=== PATIENT | female | born 1995 | race Caucasian/White ===

== ENCOUNTER 2016-08-14 08:45 | Inpatient (IN) | payer OTHER ==
[2016-08-14] MEDS ORDERED: LACTATED RINGERS 1,000 ML ONE (09:17)
[2016-08-14] MEDS ORDERED: SUBLIMAZE ONE (09:17)
[2016-08-14] MEDS ORDERED: POLYCILLIN/NS 2 GM/100 ML 2 GM/100 ML BAG IV ONE ×2 (09:17→09:40)
[2016-08-14] MEDS: SUBLIMAZE IV PRN ×2 (09:30→11:19)
[2016-08-14] MEDS ORDERED: ePHEDrine SULFATE IV PRN (09:40)
[2016-08-14] MEDS ORDERED: BRETHINE IVP PRN (09:40)
[2016-08-14] MEDS ORDERED: MINERAL OIL PO PRN (09:40)
[2016-08-14] MEDS ORDERED: XYLOCAINE 2% INFILTRATI ONE (09:40)
[2016-08-14] MEDS ORDERED: BRETHINE SUB-Q PRN (09:40)
[2016-08-14] MEDS ORDERED: LACTATED RINGERS 1,000 ML IV ONE (09:45)
[2016-08-14] MEDS ORDERED: PITOCin/NS 20 UNIT/1000ML DRIP 20 UNITS/1,000 ML BAG IV SCH ×2 (10:00→18:25)
[2016-08-14] MEDS ORDERED: ePHEDrine SULFATE ONE (10:00)
[2016-08-14] MEDS ORDERED: LACTATED RINGERS 1,000 ML IV SCH ×2 (10:00→16:00)
[2016-08-14 10:54] LABS: Basophils % (Auto) 0.2 % (0.0-1.8); Eosinophils % (Auto) 0.2 % (0.0-4.3); Hematocrit 37.2 % (30.3-42.9); Hemoglobin 12.3 gm/dl (10.1-14.3); Mean Corpuscular HGB Conc 33 % (30-34); Mean Corpuscular Hemoglobin 28 pg (28-32); Mean Corpuscular Volume 85 fl (79-97); Platelet Count 210 K/mm3 (140-440); Red Blood Count 4.39 M/mm3 (3.65-5.03); Red Cell Distribution Width 14.4 % (13.2-15.2); White Blood Count 10.8 K/mm3 (4.5-11.0)
--- NOTE | 2016-08-14 10:55 | History and Physical Report ---
History of Present Illness Date of examination: 08/14/16 Date of admission: 08/14/16 08:51 Chief complaint: Active labor History of present illness: Patient is a 21 year old who presents in active labor with no care. She is post vaginal delivery 18 months ago. 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: chlamydia Social history: - Obstetrical History Expected Date of Delivery: 08/16/16 Actual Gestation: 39 Week(s) 5 Day(s) : 2 Para: 1 Medications and Allergies Allergies Allergy/AdvReac Type Severity Reaction Status Date / Time No Known Allergies Allergy Verified 10/16/14 17:20 Active Meds: Active Medications Ephedrine Sulfate (Ephedrine Sulfate) 10 mg IV Q2M PRN PRN Reason: Hypotension Stop: 08/14/16 18:00 Fentanyl (Sublimaze) 100 mcg IV Q2H PRN PRN Reason: Labor Pain Last Admin: 08/14/16 09:30 Dose: 100 mcg Ampicillin Sodium (Polycillin/Ns 2 Gm/100 Ml) 2 gm in 100 mls @ 100 mls/hr IV ONCE ONE PRN Reason: Protocol Stop: 08/14/16 10:39 Last Admin: 08/14/16 09:35 Dose: 100 mls/hr Ampicillin Sodium (Polycillin/Ns 1 Gm/50 Ml) 1 gm in 50 mls @ 100 mls/hr IV Q4H SELENE PRN Reason: Protocol Lactated Ringer's (Lactated Ringers) 1,000 mls @ 125 mls/hr IV DIRECT SELENE Oxytocin/Sodium Chloride (Pitocin/Ns 20 Unit/1000ml Drip) 20 units in 1,000 mls @ 125 mls/hr IV DIRECT SELENE Lactated Ringer's (Lactated Ringers) 1,000 mls @ 999 mls/hr IV BOLUS ONE Stop: 08/14/16 10:45 Last Admin: 08/14/16 09:55 Dose: 999 mls/hr Influenza Virus Vaccine Quadrival (Fluarix Quad 8520-6577(36 Mos+)) 60 mcg IM .ONCE ONE Stop: 08/15/16 12:01 Mineral Oil (Mineral Oil) 30 ml PO QHS PRN PRN Reason: Constipation Review of Systems All systems: negative Genitourinary: contractions - Vital Signs Vital signs: Vital Signs Pulse Pulse Ox 57 L 97 08/14/16 08:48 08/14/16 08:48 Temp Pulse Resp BP Pulse Ox 98.2 F 106 H 20 115/66 99 08/14/16 09:58 08/14/16 10:33 08/14/16 09:58 08/14/16 10:31 08/14/16 10:33 - Physical Exam Breasts: Cardiovascular: Regular rate, Normal S1, Normal S2 Lungs: Positive: Clear to auscultation Abdomen: Positive: normal appearance, soft, normal bowel sounds. Negative: distention, tenderness Vulva: both: normal Vagina: Positive: normal moisture. Negative: discharge Cervix: Negative: lesion, discharge Uterus: Positive: normal size, normal contour Adnexa: both: normal Anus/Rectum: Positive: normal perianal skin, heme negative. Negative: rectal mass, hemorrhoids Extremities: Deep Tendon Reflex Grade: Normal +2 - Obstetrical Cervical Dilatation: 7 Cervical Effacement Percentage: 90 station: -2 Uterine Contraction Pattern: Regular Uterine Tone Measurement Phase: Resting Uterine Contraction Intensity: Moderate Results All other labs normal. Assessment and Plan IUP at 39.5 weeks in active labor with no care. Will draw panel. NO cultures available. Patient wants epidural. Anticipate .
--- NOTE | 2016-08-14 11:10 | Event Note ---
Date: 08/14/16 In to see patient. Cvx /-2. AROM for dark, thick meconium. Patient reconfirmed that EDC is 08/16/16. She denies tobacco or drug use.
[2016-08-14 11:19] LABS: HIV-1 Antigen p24 Non React (Non React); HIVR-1/2 Ab Non React (Non React)
[2016-08-14] MEDS: ePHEDrine SULFATE IV PRN ×2 (11:55→12:08)
[2016-08-14] MEDS ORDERED: NARCAN 2 MG/2 ML IV PRN (12:01)
--- NOTE | 2016-08-14 12:01 | Anesthesia Consultation ---
Anesthesia Consult and Med Hx Date of service: 08/14/16 - Airway Anesthetic Teeth Evaluation: Good ROM Head & Neck: Adequate Mental/Hyoid Distance: Adequate Intubation Access Assessment: Probably Good - Pulmonary Exam CTA: Yes - Cardiac Exam Cardiac Exam: RRR - Pre-Operative Health Status ASA Pre-Surgery Classification: ASA2, Emergency Proposed Anesthetic Plan: Epidural, Spinal - Pulmonary Hx Asthma: Yes (last used inhaler 03/07) COPD: No Hx Pneumonia: No - Cardiovascular System Hx Hypertension: No - Central Nervous System Hx Seizures: No Hx Psychiatric Problems: No - Endocrine Hx Renal Disease: No Hx End Stage Renal Disease: No Hx Hypothyroidism: No Hx Hyperthyroidism: No - Hematic Hx Anemia: No Hx Sickle Cell Disease: No - Other Systems Hx Alcohol Use: No
[2016-08-14] MEDS: fentaNYL-BUPIV 2 MCG/ML-0.125% 200 MCG/100 ML BAG EPIDURAL SCH ×2 (12:39→15:40)
[2016-08-14] MEDS ORDERED: POLYCILLIN/NS 1 GM/50 ML 1 GM/50 ML BAG IV SCH (13:42)
[2016-08-14] MEDS ORDERED: BICITRA ONE (15:12)
[2016-08-14] MEDS ORDERED: REGLAN ONE (15:12)
[2016-08-14] MEDS ORDERED: PEPCID IV ONE ×2 (15:13→15:14)
[2016-08-14] MEDS ORDERED: ANCEF/STERILE WATER 2 GM/20 ML 2 GM/20 ML SYRINGE IV ONE (15:13)
[2016-08-14] MEDS ORDERED: REGLAN IV ONE (15:14)
[2016-08-14] MEDS ORDERED: BICITRA PO ONE (15:14)
--- NOTE | 2016-08-14 15:23 | Anesthesia Day of Surgery ---
Anesthesia Day of Surgery - Day of Surgery Patient Examined: Yes Patient H&P Reviewed: Yes Patient is NPO: No (FSP) Pulmonary Clearance: No
[2016-08-14] MEDS ORDERED: DILAUDID IV PRN (15:24)
[2016-08-14] MEDS ORDERED: ZOFRAN IV PRN ×2 (15:24→18:25)
[2016-08-14] MEDS ORDERED: NARCAN 0.4 MG/1 ML IV PRN ×2 (15:24→18:25)
[2016-08-14] MEDS ORDERED: BENADRYL IV PRN (15:24)
[2016-08-14] MEDS ORDERED: ANCEF/STERILE WATER 2 GM/20 ML IV NR (15:30)
--- NOTE | 2016-08-14 15:35 | Event Note ---
Date: 08/14/16 Patient still thomas regularly, but with no cervical change for 5 hours. head confirmed occiput posterior with ultrasound. heart tones now in 170s-180s from 130s. Will plan for for arrest of labor and non reassuring heart tones.
[2016-08-14] MEDS ORDERED: SODIUM CHLORIDE FLUSH SYRINGE 10 ML IV NR ×2 (16:00→18:25)
[2016-08-14] MEDS ORDERED: WATER FOR IRRIG STERILE IR ONE (16:00)
[2016-08-14] MEDS ORDERED: NACL 0.9% IR ONE (16:00)
[2016-08-14] MEDS ORDERED: XYLOCAINE MPF 2% ONE (16:01)
[2016-08-14] MEDS ORDERED: MORPHINE ONE (16:01)
[2016-08-14] MEDS ORDERED: VERSED ONE (16:14)
[2016-08-14] MEDS ORDERED: DEMEROL IV PRN (16:59)
--- NOTE | 2016-08-14 17:04 | Post Anesthesia Evaluation ---
- Post Anesthesia Evaluation Patient Participated: Yes Airway Patent: Yes Stable Respiratory Function: Yes Temp > 96.8F: Yes Pain Manageable: Yes Adequeate Hydration: Yes Anesthesia Complications: No Block Receding Appropriately: Yes (Epidural removed intact at end of surgery)
[2016-08-14] MEDS ORDERED: TUCKS PAD TP PRN (18:25)
[2016-08-14] MEDS ORDERED: MYLICON PO PRN (18:25)
[2016-08-14] MEDS ORDERED: MORPHINE IV PRN (18:25)
[2016-08-14] MEDS ORDERED: LANSINOH TP PRN (18:25)
[2016-08-14] MEDS ORDERED: MILK OF MAGNESIA PO PRN (18:25)
[2016-08-14] MEDS ORDERED: TORADOL IV PRN (18:31)
--- NOTE | 2016-08-14 18:43 | Operative Report ---
PREOPERATIVE DIAGNOSES: 1. Intrauterine , approximately 40 weeks. 2. Arrest of labor. 3. tachycardia. 4. Meconium staining. 5. Insufficient care. POSTOPERATIVE DIAGNOSES: 1. Intrauterine , approximately 40 weeks. 2. Arrest of labor. 3. tachycardia. 4. Meconium staining. 5. Insufficient care. 6. Likely oligohydramnios. SURGEON: Nell Kiser MD ANESTHESIA: Spinal, Dr. Costa. ESTIMATED BLOOD LOSS: 600. URINE OUTPUT: 100, slightly blood tinged at the end of the procedure. COMPLICATIONS: None. INTRAVENOUS FLUIDS: 1500. FINDINGS: A 7-pound 2-ounce viable male, 3235 grams, 19.5 inches long, in occiput posterior position. DESCRIPTION OF PROCEDURE: The patient was taken to the OR with IV running in place. She was properly identified as herself. She was given a dose for epidural. She was then prepped and draped in normal sterile fashion. An Allis test confirmed adequate anesthesia. A Pfannenstiel incision was then made with a scalpel and carried to underlying fascia using scalpel and the Bovie. The fascia was incised in the midline. The incision was then extended bilaterally using the curved Adler scissors. The fascia was then dissected from the underlying rectus muscles with sharp and blunt dissection. The muscles were in the midline and the incision was extended superiorly and inferiorly using the Adler scissors. The peritoneal cavity was entered into. The bladder appeared to be bulging into the field. A bladder blade was then placed into the incision to protect the bladder. A bladder flap was created and a hysterotomy incision was then made. The lower uterine segment was noted to be very thin and somewhat floppy. Upon entry into the uterus, the ear was noted. There was minimal green fluid. The infant was then delivered through the incision. His mouth and nose were suctioned. The cord was clamped and cut. He was then handed to the awaiting NICU personnel. The placenta was delivered manually. Uterus was exteriorized and cleared of all clots and debris. The uterine incision was then repaired in a running locked fashion with 0 chromic. Upon what was thought to be the end of the repair, it was noted that there was an area of the lower uterine segment that had slipped out of the initial suture line. was identified, tented upward and repaired. Once this was completed, there was excellent hemostasis. The abdomen and pelvis were copiously irrigated with warm normal saline. The uterus was replaced into the abdominal cavity. The muscles were reapproximated in the midline with 0 Vicryl. The fascia was closed in a running fashion using 0 Vicryl. The subcutaneous tissue was then copiously irrigated and the skin was closed in a running fashion with 4-0 Monocryl. The sponge, lap, needle, and instrument counts were correct x 2. The patient tolerated the procedure well and was taken to recovery in stable condition. JOB# [id number] JENNIFER/JAY
[2016-08-14] MEDS ORDERED: D5LR 1,000 ML IV SCH (20:00)
[2016-08-15] MEDS: PERCOCET 5/325 PO PRN ×3 (00:13→14:56)
[2016-08-15] MEDS ORDERED: BOOSTRIX IM ONE (06:00)
[2016-08-15] MEDS: MOTRIN PO PRN ×2 (06:09→14:57)
[2016-08-15 06:13] LABS: Hematocrit 29.6 % (30.3-42.9); Hemoglobin 9.7 gm/dl (10.1-14.3)
[2016-08-15] MEDS: PRENATAL VITAMIN PO SCH (10:00)
[2016-08-15] MEDS: FEOSOL PO SCH (10:00)
[2016-08-15] MEDS ORDERED: FLUARIX QUAD 2016-2017(36 MOS+) IM ONE (12:00)
--- NOTE | 2016-08-15 16:34 | Progress Note ---
Assessment and Plan PPD 1 s/p primary c/s. patient waiting to pass flatus. Will likely discharge on tomorrow. Subjective - Subjective Date of service: 08/15/16 Interval history: Patient is a 21 year old who presents in active labor with no care. She is post vaginal delivery 18 months ago. Patient reports: appetite normal, voiding normally, pain well controlled [place]: doing well Objective - Vital Signs Latest vital signs: Vital Signs Temp Pulse Pulse Pulse Resp BP BP 08/15/16 11:31 97.8 F 76 16 90/50 08/15/16 09:07 90/58 08/15/16 07:35 98.0 F 88 20 80/58 08/15/16 06:09 18 08/15/16 04:30 98.4 F 89 20 116/63 08/15/16 01:13 18 08/15/16 00:13 18 08/15/16 00:00 98.6 F 96 H 20 92/54 08/14/16 20:10 98.0 F 99 H 20 123/73 08/14/16 18:10 97.5 F L 102 H 18 119/72 08/14/16 17:52 99.8 F H 112 H 18 104/65 08/14/16 17:40 111 H 18 99/62 08/14/16 17:25 108 H 18 101/59 08/14/16 17:10 99.0 F 108 H 18 103/62 08/14/16 17:05 113 H 18 101/59 08/14/16 17:00 117 H 18 100/56 08/14/16 16:55 125 H 18 85/51 Pulse Ox 08/15/16 11:31 08/15/16 09:07 08/15/16 07:35 08/15/16 06:09 08/15/16 04:30 08/15/16 01:13 08/15/16 00:13 08/15/16 00:00 08/14/16 20:10 08/14/16 18:10 08/14/16 17:52 100 08/14/16 17:40 99 08/14/16 17:25 99 08/14/16 17:10 99 08/14/16 17:05 99 08/14/16 17:00 99 08/14/16 16:55 99 Intake and Output 08/15/16 08/15/16 08/15/16 06:59 14:59 22:59 Intake Total 870 120 Output Total 1500 750 Balance -630 -630 Intake: IV 750 D5lr 1,000 ml @ 125 mls/ 750 hr IV DIRECT SELENE Rx#: [id number] Oral 120 120 Output: Urine 1500 750 Indwelling Catheter 1500 Void 750 Other: Total, Intake Amount 120 120 Total, Output Amount 600 750 - Exam Breasts: Present: deferred Cardiovascular: Present: Regular rate, Normal S1, Normal S2 Lungs: Present: Clear to auscultation, Normal air movement Abdomen: Present: normal appearance, soft, normal bowel sounds Uterus: Present: normal, firm Extremities: Present: normal - Labs Labs: Abnormal lab results 08/15/16 Range/Units 05:33 Hgb 9.7 L (10.1-14.3) gm/dl Hct 29.6 L D (30.3-42.9) %
[2016-08-15] MEDS ORDERED: M-M-R II VACCINE SUB-Q ONE (16:47)
[2016-08-16] MEDS: MOTRIN PO PRN ×3 (02:19→16:35)
[2016-08-16] MEDS: PERCOCET 5/325 PO PRN ×3 (02:21→23:52)
[2016-08-16] MEDS: FEOSOL PO SCH (11:00)
[2016-08-16] MEDS: PRENATAL VITAMIN PO SCH (11:00)
--- NOTE | 2016-08-16 14:17 | Discharge Summary ---
Providers - Providers Date of Admission: 08/14/16 08:51 Date of discharge: 08/16/16 Attending physician: ANDRIA PEREZ Primary care physician: [employer] [facility] Hospitalization Reason for admission: active labor, other (no care) Delivery: Procedure: primary low transverse Procedure details: see op report Episiotomy: none Laceration: none Incision: normal, intact complications: none Discharge diagnosis: IUP at term delivered [place] baby: male Hospital course: Unremarkable Condition at discharge: Good Disposition: DISCHARGED TO HOME OR SELFCARE Plan - Discharge Medications Prescriptions: Docusate Sodium [Colace] 100 mg PO BID PRN #60 capsule PRN Reason: Constipation Ferrous Sulfate [Feosol 325 MG tab] 325 mg PO BID #60 tablet Ibuprofen [Motrin] 800 mg PO Q8HR PRN #40 tablet PRN Reason: Pain Oxycodone HCl/Acetaminophen [Percocet 7.5/325 mg] 1 each PO Q6HR PRN #50 tablet PRN Reason: Pain - Provider Discharge Summary Activity: routine, no sex for 6 weeks, no heavy lifting 4 weeks, no strenuous exercise Diet: routine Instructions: routine Additional instructions: [] Smoking cessation referral if applicable(refer to patient education folder for contact #) [] Refer to [facility] Booklet Call your doctor immediately for: * Fever > 100.5 * Heavy vaginal bleeding ( >1 pad per hour) * Severe persistent headache * Shortness of breath * Reddened, hot, painful area to leg or breast * Drainage or odor from incision. * Keep incision clean and dry at all times and follow doctor's instructions regarding bathing/showering - Follow up plan Follow up: ANDRIA PEREZ MD [Staff Physician] - 14 Days
[2016-08-17] MEDS: MOTRIN PO PRN ×2 (05:25→12:59)
[2016-08-17] MEDS: PRENATAL VITAMIN PO SCH (10:01)
[2016-08-17] MEDS: FEOSOL PO SCH (10:02)
[2016-08-17] MEDS: PERCOCET 5/325 PO PRN (18:45)
[2016-08-17 18:52] VITALS: BP 92/48
== END 2016-08-17 21:40 | disposition home or self-care (01) | DRG 765 ==
LOC: TRG 08:45 → LD 08:51 → OB 18:17
PROVIDERS: ADMIT Obstetrics & Gynecology; ATTEND Obstetrics & Gynecology
PROC: 10D00Z1 Extraction of Products of Conception, Low, Open Approach (ICD-10-PCS; principal; 2016-08-14)
DX: O76 Abnormality in fetal heart rate and rhythm complicating labor and delivery (principal); O98.82 Other maternal infectious and parasitic diseases complicating childbirth; O41.03X0 Oligohydramnios, third trimester, not applicable or unspecified; O09.33 Supervision of pregnancy with insufficient antenatal care, third trimester; O77.0 Labor and delivery complicated by meconium in amniotic fluid; Z3A.39 39 weeks gestation of pregnancy; Z37.0 Single live birth; O99.513 Diseases of the respiratory system complicating pregnancy, third trimester; O62.1 Secondary uterine inertia
CPT/HCPCS: 36415; 85014; 85018; 85025; 86592; 86706; 86762; 86803; 86850; 86900; 86901; 87806; 88307; 90471; 90715; 99211; G0463; J0290; J0690; J1885; J2175; J2250; J2270; J2590; J2765; J3010; J7120; J7121